=== PATIENT | male | born 1970 | race Caucasian/White ===

== ENCOUNTER 2019-02-05 14:05 | Inpatient (IN) ==
[2019-02-05] MEDS ORDERED: CeFAZolin Syr 2,000MG/20 ML 2,000 MG/20 ML SYRINGE IVPB ONE (14:27)
[2019-02-05] MEDS ORDERED: Ringers Solution, Lactated 1,000 ML IVC SCH ×2 (14:30→18:42)
[2019-02-05] MEDS ORDERED: Gabapentin 300 MG CAPSULE PO ONE (15:15)
[2019-02-05] MEDS ORDERED: Celecoxib 200 MG CAPSULE PO ONE (15:15)
[2019-02-05] MEDS ORDERED: *HR* HYDROmorphone (PF) 1 MG/ML SYRINGE IVP PRN (15:16)
[2019-02-05] MEDS ORDERED: *HR* Promethazine 25 MG/ML VIAL IVP PRN ×2 (15:16→18:42)
[2019-02-05] MEDS ORDERED: *HR* OxyCODONE Immed Rel 5 MG TABLET PO PRN (15:16)
[2019-02-05] MEDS ORDERED: Ondansetron 4 MG/2 ML VIAL IVP ONE (15:16)
[2019-02-05] MEDS ORDERED: *HR* OxyCODONE Immed Rel 5 MG TABLET PO ONE (15:40)
[2019-02-05] MEDS ORDERED: *HR* FentaNYL (PF) 100 MCG/2 ML VIAL ONE (15:58)
[2019-02-05] MEDS ORDERED: *HR* Midazolam HCl 2 MG/2 ML VIAL ONE (15:58)
[2019-02-05] MEDS ORDERED: Tranexamic Acid 1,000 MG/10 ML VIAL ONE (15:59)
[2019-02-05] MEDS ORDERED: Ondansetron 4 MG/2 ML VIAL ONE (16:31)
[2019-02-05] MEDS ORDERED: Ethanol\\Acetic Acid\\Na Ace\\Ben 1,000 ML IRRIG.SOLN IR ONE (16:40)
[2019-02-05] MEDS ORDERED: *HR* PHENYLEPHRINE 1,000 MCG/10 ML SYRINGE IVP ONE (16:54)
[2019-02-05] MEDS ORDERED: *HR* Enoxaparin 30 MG/0.3 ML SYRINGE SQ SCH (18:00)
[2019-02-05 18:09] LABS: Hemoglobin 12.9 g/dL (12.9-16.9)
[2019-02-05] MEDS ORDERED: Temazepam 15 MG CAPSULE PO PRN (18:42)
[2019-02-05] MEDS ORDERED: *HR* Dextrose 50 % in Water (Syg) 50 ML SYRINGE IVP PRN (18:42)
[2019-02-05] MEDS ORDERED: D5% in Water 1,000 ML IVC PRN (18:42)
[2019-02-05] MEDS ORDERED: HYDROcodone BIT/Homatropine 5 MG TABLET PO PRN (18:42)
[2019-02-05] MEDS ORDERED: Ondansetron 4 MG/2 ML VIAL IVP PRN (18:42)
[2019-02-05] MEDS ORDERED: traMADol 50 MG TABLET PO PRN (18:42)
[2019-02-05] MEDS ORDERED: Dextrose Gel 15 GM/37.5 ML TUBE PO PRN ×2 (18:42)
[2019-02-05] MEDS ORDERED: MOM Conc 10 ML UD.LIQ PO PRN (18:42)
[2019-02-05] MEDS ORDERED: Naloxone 0.4 MG/ML INJ IVP PRN (18:42)
[2019-02-05] MEDS ORDERED: Sennosides 8.6 MG TABLET PO PRN (18:42)
[2019-02-05] MEDS ORDERED: Insulin LISPRO 300 UNITS/3 ML VIAL SQ SCH (21:00)
[2019-02-05] MEDS: *HR* Glimepiride 2 MG TABLET PO SCH (21:03)
[2019-02-05] MEDS: *HR* Metformin 500 MG TABLET PO SCH (21:03)
[2019-02-05] MEDS: *HR* OxyCODONE Immed Rel 5 MG TABLET PO PRN (21:09)
[2019-02-05] MEDS: Ascorbic Acid 500 MG TABLET PO SCH (21:10)
[2019-02-06] MEDS ORDERED: Acetaminophen IV 1,000 MG/100 ML INFUS..BTL IVPB PRN (02:55)
[2019-02-06] MEDS ORDERED: Ketorolac 30 MG/ML VIAL IVP PRN (02:56)
[2019-02-06] MEDS: *HR* OxyCODONE Immed Rel 5 MG TABLET PO PRN ×3 (05:02→14:46)
[2019-02-06 05:59] LABS: BUN/Creatinine Ratio 30 (6-26); Basophils % 0.2 %; Blood Urea Nitrogen 22 mg/dL (6-20); Calcium 8.8 mg/dL (8.6-10.3); Carbon Dioxide 26 mEq/L (23-29); Chloride 106 mEq/L (98-107); Eosinophils # 0.1 K/mcL (0.0-0.6); Eosinophils % 1.4 %; Glucose 154 mg/dL (70-105); Hematocrit 38.7 % (37.5-50.1); Hemoglobin 12.3 g/dL (12.9-16.9); Immature Granulocytes % 0.4 % (0-4); Lymphocytes # 1.6 K/mcL (0.6-4.6); Lymphocytes % 17.8 %; Mean Corpuscular HGB Conc 31.8 g/dL (31.6-35.5); Mean Corpuscular Hemoglobin 29.6 pg (28.0-33.3); Mean Platelet Volume 10.6 fL (9.4-12.4); Monocytes % 11.2 %; Neutrophils # 6.3 K/mcL (1.6-8.9); Osmolality,Calculated 292 (280-300); Platelet Count 252 K/mcL (140-400); Potassium 3.8 mEq/L (3.5-5.1); Red Blood Count 4.16 M/mcL (4.19-5.50); Red Cell Distribution Width 12.1 % (11.5-14.5); Sodium 138 mEq/L (136-145); White Blood Count 9.1 K/mcL (4.3-11.1); eGFR For African Americans > 60 (> 60); eGFR For Non-African Americans > 60 (> 60)
[2019-02-06] MEDS ORDERED: *HR* Enoxaparin 30 MG/0.3 ML SYRINGE SQ SCH (06:00)
[2019-02-06] MEDS ORDERED: Insulin LISPRO 300 UNITS/3 ML VIAL SQ SCH (07:30)
[2019-02-06] MEDS: *HR* Glimepiride 2 MG TABLET PO SCH (08:00)
[2019-02-06] MEDS: Ascorbic Acid 500 MG TABLET PO SCH (08:00)
[2019-02-06] MEDS: *HR* Metformin 500 MG TABLET PO SCH (08:01)
[2019-02-06] MEDS ORDERED: amLODIPine 5 MG TABLET PO SCH (09:00)
[2019-02-06] MEDS ORDERED: FLUoxetine 20 MG CAPSULE PO SCH (09:00)
[2019-02-06] MEDS ORDERED: BuPROPion XL (24 HR) 150 MG TABLET PO SCH (09:00)
[2019-02-06] MEDS ORDERED: Lisinopril 20 MG TABLET PO SCH (09:00)
[2019-02-06] MEDS ORDERED: Multivit/Ca/Min/Fe/FA 1 TAB TABLET PO SCH (09:00)
[2019-02-06 11:32] VITALS: BP 137/76
== END 2019-02-06 15:00 | disposition home health service (06) | DRG 470 ==
LOC: SAMDAY 14:05 → 3NENU 18:32
PROVIDERS: ADMIT Orthopaedic Surgery; ATTEND Orthopaedic Surgery